=== PATIENT | female | born 1990 | race Caucasian/White ===

== ENCOUNTER 2017-07-31 07:46 | Emergency (ER) | payer OTHER, BC ==
[~2017-07-31] VITALS: Ht 177.8 cm; Wt 74.8 kg
[2017-07-31 07:49] VITALS: BP 108/86
--- NOTE | 2017-07-31 07:49 | ER Report ---
History and Physical Time Seen By MD: 07:48 HPI/ROS CC: Chemical exposure HPI: 26-year-old female with a negative past medical history. 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 This is the same concentration is clearing that is extra strength by [employer]. A few drops splashed up into her face when the suction canister was dropped. Initially she had a slight tightness in her chest but had has resolved. She denies any coughing, hemoptysis, shortness of breath, chest pain chest pressure, palpitations, hoarseness of voice, dizziness. Pain scale 0 out of 10. I discussed this with the patient that this was probably a transient exposure and not industrial strength chlorine. She agrees. ROS: 12 point review of systems essentially negative other than what's mentioned in history of present illness. NURSES AND OLD MEDICAL RECORDS: Reviewed PMH: Reviewed SURGICAL HX: Reviewed FAMILY HX: Noncontributory SOCIAL HX: She denies smoking alcohol or illicit drugs. VITAL SIGNS: Reviewed CONSTITUTIONAL: 26-year-old female in no distress. PHYSICAL EXAM: HEENT: Pupils equal round reactive to light and accommodate, EOMI, tympanic membranes pearly white umbo present with good light reflex. Lips dry mucous membranes moist gums nonbleeding uvula midline and rises equally with phonation, oropharynx noninjected, teeth intact. NECK: Neck supple, thyroid not appreciated, anterior and posterior cervical lymphadenopathy not appreciated. Trachea midline and rises equally with phonation. CARDIAC: S1-S2 regular rate rhythm no murmurs rubs or gallops. LUNGS: Lungs clear bilaterally posteriorly in all estes. Good air movement. ABDOMEN: Abdomen soft, nondistended, bowel sounds active in all 4 quadrants, no bruits noted, no CVA tenderness. MUSCULOSKELETAL: Strength 5 out of 5 x 4 extremities, no deformities noted. NEUROLOGIC: Patient alert and oriented by 3 Allergies: Coded Allergies: No Known Drug Allergies (Unverified , 07/31/17) Home Meds No Active Prescriptions or Reported Meds Constitutional Vital Sign - Last 24 Hours 07/31/17 07:49 Temp 98.6 Pulse 60 Resp 16 B/P (MAP) 108/86 Pulse Ox 94 O2 Delivery Room Air Medical Decision Making ED Course/Re-evaluation ED Course Patient with transient exposure to household strength chlorine. Patient will be discharged to home follow up with PCP R ED on a when necessary basis. Patient agrees with plan. Re-evaluation Medical decision-making including but not excluded minor exposure to chlorine, pulmonary contusion from chemical exposure. Decision to Disposition Date: Jul 31, 2017 Decision to Disposition Time: 08:06 Depart Departure Latest Vital Signs Vital Signs Date Time Temp Pulse Resp B/P (MAP) Pulse Ox O2 Delivery O2 Flow Rate FiO2 07/31/17 07:49 98.6 60 16 108/86 94 Room Air Impression: Primary Impression: Chlorine gas exposure Condition: Improved Disposition: HOME OR SELF-CARE New Scripts No Active Prescriptions or Reported Meds Additional Instructions: Chlorine exposure. Follow-up with your regular physician on a when necessary basis. Return to work. I and the staff wanted to thank you for allowing us to take care of your needs today in the emergency department at [facility]. We have tried to answer all of your questions and concerns. Please feel free to return to the emergency department for any further concerns or unanswered questions. LORI JARRELL MD Jul 31, 2017 07:48
== END 2017-07-31 08:15 | disposition home or self-care (01) ==
LOC: ER 07:50
DX: Z77.098 Contact with and (suspected) exposure to other hazardous, chiefly nonmedicinal, chemicals (principal)
CPT/HCPCS: 99281

== ENCOUNTER 2017-12-07 22:22 | Emergency (ER) | payer OTHER, BC ==
[2017-12-07 22:18] VITALS: BP 121/87
--- NOTE | 2017-12-07 22:27 | ER Report ---
History and Physical Time Seen By MD: 22:27 Hx. of Stated Complaint: DIRTY NEEDLE STICK, LEFT THUMB. 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 The source patient is low risk. Patient's had hepatitis B vaccine series. Allergies: Coded Allergies: No Known Drug Allergies (Unverified , 12/07/17) Home Meds No Active Prescriptions or Reported Meds Reviewed Nurses Notes: Yes Old Medical Records Reviewed: Yes Hx Substance Use Disorder: No Hx Alcohol Use: No Constitutional Vital Sign - Last 24 Hours 12/07/17 22:18 Temp 98.0 Pulse 66 Resp 16 B/P (MAP) 121/87 Pulse Ox 99 O2 Delivery Room Air Physical Exam General appearance: Alert no distress. Respiratory: Chest is non tender, lungs are clear to auscultation. Cardiac: Regular rate and rhythm Extremities: Examination of the left hand reveals a tiny puncture angélica on the palmar surface of the thumb. DIFFERENTIAL DIAGNOSIS: After history and physical exam differential diagnosis was considered for body fluid exposure Medical Decision Making Data Points Laboratory Hematology Test 12/07/17 23:00 HIV (1&2) Antibody Negative (NEGATIVE) Chemistry Test 12/07/17 23:00 HIV (1&2) Antibody Negative (NEGATIVE) ED Course/Re-evaluation ED Course Patient was admitted to an examination room. H&P was done. The differential diagnoses was considered. On clinical examination. Patient has a tiny puncture wound. Patient's source patient is likely low risk. Patient's advised against post exposure prophylaxis. Patient's baseline blood tests were drawn. Patient advised to follow-up with a jaw. Decision to Disposition Date: December 07, 2017 Decision to Disposition Time: 22:38 Depart Departure Latest Vital Signs Vital Signs Date Time Temp Pulse Resp B/P (MAP) Pulse Ox O2 Delivery O2 Flow Rate FiO2 12/07/17 22:18 98.0 66 16 121/87 99 Room Air Impression: Primary Impression: Needlestick injury accident with exposure to body fluid Condition: Improved Disposition: HOME OR SELF-CARE New Scripts No Active Prescriptions or Reported Meds Patient Instructions: Body Substance Exposure (ED) Additional Instructions: Follow-up with a HR for repeat blood work at 6 weeks and 6 months. MANI CORREIA DO December 07, 2017 22:27
== END 2017-12-07 23:15 | disposition home or self-care (01) ==
LOC: ER 22:22
DX: S61.032A Puncture wound without foreign body of left thumb without damage to nail, initial encounter (principal); W46.0XXA Contact with hypodermic needle, initial encounter; Y99.0 Civilian activity done for income or pay
CPT/HCPCS: 36415; 86703; 86706; 86803; 99282